=== PATIENT | female | born 1930 | race Caucasian/White ===

== ENCOUNTER 2016-10-20 14:21 | Emergency (ER) | payer MEDICARE, OTHER ==
[~2016-10-20 14:21] MED LIST: ACETAMINOPHEN325 MG PO; ALDACTONE25 MG PO; ANASTROZOLE1 M1 PO; ASPIRIN CHEWABL81 MG PO; BYSTOLIC10 MG PO; CARDIZEM CD120 MG PO; DULCOLAX5 MG PO; ELIQUIS2.5 MG PO; ESCITALOPRAM OXA5 MG PO; HUMIRA40 MG/0.1 SC; LASIX20 MG PO; LASIX40 MG PO; LEVAQUIN250 MG PO; MICRO-K10 MEQ PO; PEPCID AC20 MG PO; PRILOSEC20 MG PO; STOOL SOFTENER100 M1 PO; SYNTHROID50 MCG PO; TOPROL XL 25MG25 MG PO; VITAMIN D50000 UNIT PO; ZANTAC150 MG PO; ZESTRIL2.5 MG PO
== END 2016-10-20 17:24 | disposition home or self-care (01) ==
LOC: FER 14:21
DX: S52.121A Displaced fracture of head of right radius, initial encounter for closed fracture (principal); S01.81XA Laceration without foreign body of other part of head, initial encounter; S20.211A Contusion of right front wall of thorax, initial encounter; S80.02XA Contusion of left knee, initial encounter; Z99.81 Dependence on supplemental oxygen; W01.198A Fall on same level from slipping, tripping and stumbling with subsequent striking against other object, initial encounter
CPT/HCPCS: 70450; 70486; 71010; 73090; 73564

== ENCOUNTER 2016-12-30 16:30 | Emergency (ER) | payer MEDICARE, OTHER | END 2016-12-30 20:50 | disposition home or self-care (01) | LOC: FER 16:30 | DX: M43.6 Torticollis (principal); I25.10 Atherosclerotic heart disease of native coronary artery without angina pectoris; I51.9 Heart disease, unspecified; I48.91 Unspecified atrial fibrillation; J44.9 Chronic obstructive pulmonary disease, unspecified; Z79.82 Long term (current) use of aspirin; Z79.51 Long term (current) use of inhaled steroids; Z79.899 Other long term (current) drug therapy | CPT/HCPCS: 72050; 72125; J1170 ==

== ENCOUNTER 2017-01-03 02:23 | Day surgery (SDCO) | payer MEDICARE, OTHER ==
[~2017-01-03] VITALS: Ht 172.7 cm; Wt 58.2 kg
[2017-01-03 03:09] LABS: BASOPHIL 0.4 % (0-2); EOSINOPHIL 1.1 % (0-7); HGB 11.2 g/dl (12.5-16.0); LYMPHOCYTE 18.8 % (15-48); MCH 31.2 pg (25.0-31.0); MCV 97.5 fL (78.0-100.0); MONOCYTE 9.4 % (0-12); MPV 8.9 fL (6.0-9.5); NEUTROPHIL 70.3 % (41-80); PLT 184 K/uL (150-400); RBC 3.59 M/uL (4.20-5.40); RDW 12.8 % (11.5-14.0); WBC 5.3 K/uL (4.0-10.5)
[2017-01-03 03:28] LABS: CREATININE 1.2 mg/dL (0.5-1.0); POTASSIUM 3.8 mmol/L (3.5-5.1)
[2017-01-03 04:07] LABS: BILIRUBIN NEGATIVE (NEGATIVE); BLOOD TRACE-LYSED Ery/uL (NEGATIVE); CLARITY CLEAR (CLEAR); COLOR YELLOW (YELLOW); GLUCOSE (U) NORMAL (NORMAL); KETONE (U) NEGATIVE (NEGATIVE); LEUKOCYTES 3+ Leu/uL (NEGATIVE); NITRITE NEGATIVE (NEGATIVE); PROTEIN NEGATIVE (NEGATIVE); SPECIFIC GRAVITY <=1.005 (1.001-1.030)
[2017-01-03 04:15] LABS: BACTERIA 1+
[2017-01-04 04:11] LABS: BASOPHIL 0.3 % (0-2); EOSINOPHIL 1.8 % (0-7); HCT 32.6 % (37.0-47.0); HGB 10.3 g/dl (12.5-16.0); LYMPHOCYTE 26.3 % (15-48); MCH 30.9 pg (25.0-31.0); MCHC 31.6 g/dL (32.0-36.0); MCV 97.9 fL (78.0-100.0); MONOCYTE 11.3 % (0-12); MPV 9.1 fL (6.0-9.5); NEUTROPHIL 60.3 % (41-80); PLT 175 K/uL (150-400); RBC 3.33 M/uL (4.20-5.40); RDW 12.8 % (11.5-14.0)
[2017-01-04 04:12] LABS: WBC 3.8 K/uL (4.0-10.5)
[2017-01-04 04:25] LABS: CREATININE 0.8 mg/dL (0.5-1.0); POTASSIUM 3.6 mmol/L (3.5-5.1)
[2017-01-04] MEDS ORDERED: VENTOLIN HFA IN18 GM INH (10:03)
[2017-01-04] MEDS ORDERED: CARDIZEM CD120 MG PO (10:04)
[2017-01-04] MEDS ORDERED: CEFTIN250 MG PO (10:05)
[2017-01-04] MEDS ORDERED: COZAAR50 MG PO (10:05)
== END 2017-01-04 11:55 | disposition home or self-care (01) ==
LOC: FER 02:23 → FMS 04:36
PROVIDERS: Emergency Medicine; ADMIT Internal Medicine
DX: R41.0 Disorientation, unspecified (principal); W19.XXXA Unspecified fall, initial encounter; F03.90 Unspecified dementia, unspecified severity, without behavioral disturbance, psychotic disturbance, mood disturbance, and anxiety; I10 Essential (primary) hypertension; I48.0 Paroxysmal atrial fibrillation; I34.0 Nonrheumatic mitral (valve) insufficiency; I25.10 Atherosclerotic heart disease of native coronary artery without angina pectoris; E03.9 Hypothyroidism, unspecified; J44.9 Chronic obstructive pulmonary disease, unspecified; K21.9 Gastro-esophageal reflux disease without esophagitis; M19.90 Unspecified osteoarthritis, unspecified site; N39.0 Urinary tract infection, site not specified; Z95.5 Presence of coronary angioplasty implant and graft; Z95.0 Presence of cardiac pacemaker; Z85.3 Personal history of malignant neoplasm of breast; Z92.21 Personal history of antineoplastic chemotherapy; Z88.5 Allergy status to narcotic agent; Z88.0 Allergy status to penicillin; Z88.8 Allergy status to other drugs, medicaments and biological substances; Z79.01 Long term (current) use of anticoagulants; Z79.82 Long term (current) use of aspirin; Z98.51 Tubal ligation status; Z90.49 Acquired absence of other specified parts of digestive tract; Z83.3 Family history of diabetes mellitus; Z82.49 Family history of ischemic heart disease and other diseases of the circulatory system; Z79.899 Other long term (current) drug therapy
CPT/HCPCS: 36415; 70450; 71010; 80048; 81001; 84484; 85025; 87040; 87088; 93005; 94010; 94640; 97162; 97166; 97535; G0378; J2916

== ENCOUNTER 2017-01-11 13:56 | Inpatient (IN) | payer MEDICARE, OTHER ==
[~2017-01-11] VITALS: Ht 162.6 cm; Wt 61.8 kg
[~2017-01-11 13:56] MED LIST changes: +CEFTIN250 MG PO; +COZAAR50 MG PO; +VENTOLIN HFA IN18 GM INH
[2017-01-11 15:08] LABS: BASOPHIL 0.2 % (0-2); EOSINOPHIL 0.3 % (0-7); HCT 34.8 % (37.0-47.0); HGB 11.1 g/dl (12.5-16.0); LYMPHOCYTE 7.4 % (15-48); MCH 30.6 pg (25.0-31.0); MCHC 31.9 g/dL (32.0-36.0); MCV 95.9 fL (78.0-100.0); MONOCYTE 12.5 % (0-12); MPV 9.3 fL (6.0-9.5); NEUTROPHIL 79.6 % (41-80); PLT 217 K/uL (150-400); RBC 3.63 M/uL (4.20-5.40); RDW 12.7 % (11.5-14.0); WBC 11.4 K/uL (4.0-10.5)
[2017-01-11 15:18] LABS: INR 1.28 (0.9-1.2); PROTHROMBIN TIME 15.5 SECONDS (11.7-14.0); PTT 32.7 SECONDS (23.2-31.4)
[2017-01-11 15:29] LABS: ALBUMIN 3.3 g/dL (3.4-4.8); CREATININE 1.5 mg/dL (0.5-1.0); POTASSIUM 4.1 mmol/L (3.5-5.1)
[2017-01-11 15:30] LABS: LACTIC ACID 1.9 mmol/L (0.5-2.2)
[2017-01-11 15:39] LABS: BILIRUBIN - TOTAL 0.4 mg/dL (0.1-1.0); GLOBULIN (CALCULATION) 2.7 g/dL (2.2-4.2)
[2017-01-11 15:57] LABS: BILIRUBIN NEGATIVE (NEGATIVE); BLOOD TRACE-INTACT Ery/uL (NEGATIVE); CLARITY CLEAR (CLEAR); COLOR YELLOW (YELLOW); GLUCOSE (U) NORMAL (NORMAL); KETONE (U) TRACE mg/dL (NEGATIVE); LEUKOCYTES NEGATIVE Leu/uL (NEGATIVE); NITRITE NEGATIVE (NEGATIVE); PROTEIN NEGATIVE (NEGATIVE); SPECIFIC GRAVITY 1.025 (1.001-1.030); UROBILINOGEN 0.2 mg/dL (0.2-1.0)
[2017-01-11 16:17] LABS: BACTERIA 1+
[2017-01-12 05:36] LABS: BASOPHIL 0.1 % (0-2); EOSINOPHIL 0.1 % (0-7); HCT 36.4 % (37.0-47.0); HGB 11.8 g/dl (12.5-16.0); LYMPHOCYTE 8.7 % (15-48); MCH 30.7 pg (25.0-31.0); MCHC 32.4 g/dL (32.0-36.0); MCV 94.8 fL (78.0-100.0); MONOCYTE 4.9 % (0-12); MPV 9.7 fL (6.0-9.5); NEUTROPHIL 86.2 % (41-80); PLT 252 K/uL (150-400); RBC 3.84 M/uL (4.20-5.40); RDW 12.6 % (11.5-14.0)
[2017-01-12 05:54] LABS: ALBUMIN 3.2 g/dL (3.4-4.8); BILIRUBIN - TOTAL 0.3 mg/dL (0.1-1.0); CREATININE 1.4 mg/dL (0.5-1.0); GLOBULIN (CALCULATION) 3.2 g/dL (2.2-4.2); MAGNESIUM 1.67 mg/dL (1.40-2.10); POTASSIUM 3.9 mmol/L (3.5-5.1); TOTAL PROTEIN 6.4 g/dL (6.4-8.3)
[2017-01-12 06:03] LABS: TSH (THYROID STIM HORMONE) 2.31 uIU/mL (0.270-4.200)
[2017-01-13 04:50] LABS: BASOPHIL 0.1 % (0-2); HCT 31.5 % (37.0-47.0); HGB 10.3 g/dl (12.5-16.0); LYMPHOCYTE 15.9 % (15-48); MCH 30.8 pg (25.0-31.0); MCHC 32.7 g/dL (32.0-36.0); MCV 94.3 fL (78.0-100.0); MPV 9.5 fL (6.0-9.5); PLT 240 K/uL (150-400); RBC 3.34 M/uL (4.20-5.40); RDW 12.5 % (11.5-14.0); WBC 8.4 K/uL (4.0-10.5)
[2017-01-13 05:09] LABS: CREATININE 1.1 mg/dL (0.5-1.0); MAGNESIUM 1.5 mg/dL (1.40-2.10); POTASSIUM 3.5 mmol/L (3.5-5.1)
[2017-01-14 05:01] LABS: BASOPHIL 0.1 % (0-2); EOSINOPHIL 2.2 % (0-7); HCT 30.9 % (37.0-47.0); HGB 10.1 g/dl (12.5-16.0); LYMPHOCYTE 16.2 % (15-48); MCH 30.6 pg (25.0-31.0); MCHC 32.7 g/dL (32.0-36.0); MCV 93.6 fL (78.0-100.0); MONOCYTE 12.2 % (0-12); NEUTROPHIL 69.3 % (41-80); PLT 240 K/uL (150-400); RDW 12.5 % (11.5-14.0); WBC 6.9 K/uL (4.0-10.5)
[2017-01-14 05:15] LABS: CREATININE 0.8 mg/dL (0.5-1.0); MAGNESIUM 1.4 mg/dL (1.40-2.10); POTASSIUM 3.3 mmol/L (3.5-5.1)
[2017-01-15 05:44] LABS: CREATININE 0.7 mg/dL (0.5-1.0); POTASSIUM 3.4 mmol/L (3.5-5.1)
[2017-01-17 04:58] LABS: HGB 10.2 g/dl (12.5-16.0); MCHC 32.9 g/dL (32.0-36.0); MCV 94.2 fL (78.0-100.0); MPV 9.1 fL (6.0-9.5); RBC 3.29 M/uL (4.20-5.40); RDW 12.9 % (11.5-14.0); WBC 8.6 K/uL (4.0-10.5)
[2017-01-17 05:14] LABS: CREATININE 0.7 mg/dL (0.5-1.0); POTASSIUM 3.6 mmol/L (3.5-5.1)
[2017-01-17] MEDS ORDERED: NEURONTIN100 MG PO (11:44)
[2017-01-17] MEDS ORDERED: ATORVASTATIN CA80 MG PO (11:44)
[2017-01-17] MEDS ORDERED: LORAZEPAM 0.5M0.5 MG PO (11:45)
[2017-01-17] MEDS ORDERED: ACETAMINOPHEN325 MG PO (13:06)
[2017-01-17] MEDS ORDERED: METOLAZONE 5MG T5 M1 PO (13:12)
[2017-01-17] MEDS ORDERED: K-DUR20 MEQ PO (13:13)
[2017-01-17] MEDS ORDERED: OMEPRAZOLE40 MG PO (13:13)
[2017-01-17] MEDS ORDERED: XOPENEX (11.25 MG/3 INH (13:14)
[2017-01-17] MEDS ORDERED: LEXAPRO20 MG PO (13:15)
[2017-01-17] MEDS ORDERED: PULMICORT0.5 MG/2 M NEB (13:15)
[2017-01-17] MEDS ORDERED: [UNRECOGNIZED DRUG - OTHER] PO (13:17)
[2017-01-17] MEDS ORDERED: DRISDOL50000 UNIT PO (13:18)
[2017-01-17] MEDS ORDERED: VANCOMYCIN PO (13:24)
[2017-01-17] MEDS ORDERED: METRONIDAZOLE500 MG PO (13:27)
== END 2017-01-17 15:02 | disposition home health service (06) | DRG 371 ==
LOC: FER 13:56 → FTCU 16:07 → FMS 16:07 → FTCU 18:52 → FMS 01-14 13:00
PROVIDERS: Emergency Medicine; Internal Medicine; ADMIT Internal Medicine
DX: A04.7 Enterocolitis due to Clostridium difficile (principal); G93.41 Metabolic encephalopathy; N17.9 Acute kidney failure, unspecified; J96.10 Chronic respiratory failure, unspecified whether with hypoxia or hypercapnia; I50.42 Chronic combined systolic (congestive) and diastolic (congestive) heart failure; E87.6 Hypokalemia; J44.9 Chronic obstructive pulmonary disease, unspecified; D50.9 Iron deficiency anemia, unspecified; I25.10 Atherosclerotic heart disease of native coronary artery without angina pectoris; I25.5 Ischemic cardiomyopathy; Z85.3 Personal history of malignant neoplasm of breast; F03.90 Unspecified dementia, unspecified severity, without behavioral disturbance, psychotic disturbance, mood disturbance, and anxiety; Z88.8 Allergy status to other drugs, medicaments and biological substances; Z88.0 Allergy status to penicillin; Z88.1 Allergy status to other antibiotic agents; Z91.040 Latex allergy status; Z66 Do not resuscitate; Z83.3 Family history of diabetes mellitus; Z79.82 Long term (current) use of aspirin; Z99.81 Dependence on supplemental oxygen
CPT/HCPCS: 36415; 71010; 80048; 80053; 81001; 82607; 83540; 83550; 83605; 83690; 83735; 83880; 84145; 84443; 84484; 85025; 85610; 85730; 87040; 87045; 87046; 87088; 87205; 87328; 87337; 87493; 93005; 97110; 97116; 97162; 97166; 97530-GP; 97535; J1956; J2405; J2916; J3420

== ENCOUNTER 2017-02-07 23:26 | Inpatient (IN) | payer MEDICARE, OTHER ==
[~2017-02-07] VITALS: Ht 165.1 cm; Wt 58.6 kg
[~2017-02-07 23:26] MED LIST changes: +ATORVASTATIN CA80 MG PO; +DRISDOL50000 UNIT PO; +K-DUR20 MEQ PO; +LEXAPRO20 MG PO; +LORAZEPAM 0.5M0.5 MG PO; +METOLAZONE 5MG T5 M1 PO; +METRONIDAZOLE500 MG PO; +NEURONTIN100 MG PO; +OMEPRAZOLE40 MG PO; +PULMICORT0.5 MG/2 M NEB; +VANCOMYCIN PO; +XOPENEX (11.25 MG/3 INH; +[UNRECOGNIZED DRUG - OTHER] PO
[2017-02-08 00:08] LABS: BASOPHIL 0.1 % (0-2); EOSINOPHIL 0.6 % (0-7); HCT 35.7 % (37.0-47.0); HGB 11.4 g/dl (12.5-16.0); LYMPHOCYTE 6.7 % (15-48); MCH 30.9 pg (25.0-31.0); MCHC 31.9 g/dL (32.0-36.0); MCV 96.7 fL (78.0-100.0); MONOCYTE 10.6 % (0-12); PLT 160 K/uL (150-400); RBC 3.69 M/uL (4.20-5.40); RDW 14.9 % (11.5-14.0); WBC 8.8 K/uL (4.0-10.5)
[2017-02-08 00:12] LABS: INR 1.19 (0.9-1.2); PROTHROMBIN TIME 14.7 SECONDS (11.7-14.0)
[2017-02-08 00:19] LABS: LACTIC ACID 1.7 mmol/L (0.5-2.2)
[2017-02-08 00:22] LABS: ALBUMIN 3.2 g/dL (3.4-4.8); BILIRUBIN - TOTAL 0.4 mg/dL (0.1-1.0); CREATININE 0.9 mg/dL (0.5-1.0); GLOBULIN (CALCULATION) 2.8 g/dL (2.2-4.2); POTASSIUM 4.3 mmol/L (3.5-5.1)
[2017-02-08 02:05] LABS: BILIRUBIN NEGATIVE (NEGATIVE); BLOOD TRACE-INTACT Ery/uL (NEGATIVE); CLARITY CLEAR (CLEAR); COLOR YELLOW (YELLOW); GLUCOSE (U) NORMAL (NORMAL); KETONE (U) NEGATIVE (NEGATIVE); LEUKOCYTES NEGATIVE Leu/uL (NEGATIVE); NITRITE NEGATIVE (NEGATIVE); PROTEIN NEGATIVE (NEGATIVE); SPECIFIC GRAVITY 1.025 (1.001-1.030); UROBILINOGEN 0.2 mg/dL (0.2-1.0); pH 5.5 (5.0-9.0)
[2017-02-08 02:09] LABS: URINARY RBC RARE; URINARY WBC RARE
== END 2017-02-08 16:02 | disposition other institution (70) | DRG 372 ==
LOC: FER 23:26 → FMS 02-08 02:34
PROVIDERS: Emergency Medicine; ADMIT Internal Medicine
DX: A04.7 Enterocolitis due to Clostridium difficile (principal); J96.10 Chronic respiratory failure, unspecified whether with hypoxia or hypercapnia; Z99.81 Dependence on supplemental oxygen; I11.0 Hypertensive heart disease with heart failure; I48.91 Unspecified atrial fibrillation; F03.90 Unspecified dementia, unspecified severity, without behavioral disturbance, psychotic disturbance, mood disturbance, and anxiety; E86.0 Dehydration; I10 Essential (primary) hypertension; E03.9 Hypothyroidism, unspecified; D50.9 Iron deficiency anemia, unspecified; M06.9 Rheumatoid arthritis, unspecified; Z85.3 Personal history of malignant neoplasm of breast; Z95.810 Presence of automatic (implantable) cardiac defibrillator; Z83.3 Family history of diabetes mellitus; Z88.8 Allergy status to other drugs, medicaments and biological substances; Z88.6 Allergy status to analgesic agent; Z88.0 Allergy status to penicillin; Z91.040 Latex allergy status; I25.10 Atherosclerotic heart disease of native coronary artery without angina pectoris; Z95.1 Presence of aortocoronary bypass graft; R19.7 Diarrhea, unspecified
CPT/HCPCS: 36415; 71010; 80053; 81001; 83605; 83690; 84443; 85025; 85610; 85730; 86403; 87040; 87045; 87046; 87077; 87088; 87205; 87493; 93005; J3370; Q9967